=== PATIENT | male | born 1965 | race Caucasian/White ===

== ENCOUNTER 2024-08-20 10:59 | Emergency (ER) | payer OTHER ==
[2024-08-20 11:06] VITALS: BP 148/77; PULSE 102; RESP 18; TEMP 98.5; BMI 30.4
== END 2024-08-20 13:57 | disposition home or self-care (01) ==
LOC: JER 10:59
PROC: 0H98XZZ Drainage of Buttock Skin, External Approach (ICD-10-PCS; principal; 2024-08-20)
DX: L02.31 Cutaneous abscess of buttock (principal); R50.9 Fever, unspecified
CPT/HCPCS: 10060; 99284-25